=== PATIENT | female | born 1970 | race Caucasian/White ===

== ENCOUNTER → 2017-10-16 | Day surgery (SDC) | payer OTHER ==
[~2017-10-16] VITALS: Ht 165.1 cm; Wt 70.3 kg
[~2017-10-16] MED LIST: ALPRAZOLAM0.25 M1 PO; DEXILANT60 M1 PO; EPIPEN 2-P0.3 MG/0.3 IM; EPIPEN 2-PAK1 MG/ML IM; LATISSE5 ML TOP; MIRENA1 EACH; NAPROSYN375 MG PO; SYNTHROID25 MCG PO; XOPENEX HFA15 GM INH; ZYRTEC10 M6 PO; [UNRECOGNIZED DRUG - OTHER] PO
--- NOTE | 2017-10-16 13:54 | Operative Report ---
Operative/Inv Procedure Report Surgery Date: 10/16/17 Name of Procedure: right ureteroscopy, laser lithotripsy, stent placement Pre-Operative Diagnosis: right distal ureteral stone Post-Operative Diagnosis: same Estimated Blood Loss: scant Surgeon/Doctor Of Podiatry: Sandrita Roberto MD Anesthesia: laryngeal mask airway Drains: 6x24cm stent Specimens: stone fragments Complications: none Condition: stable Operative Indication: right flank, RLQ pain Operative/Procedure Note Note: Is an operative dictation on patient Zina Levy. 47-year-old female with a history of kidney stones she is pad as well back in May 2017. However she was unable to pass the stone was stuck in the ureter. Due to recent KUB that showed a distal UVJ stone approximately 7 mm size. She is continuing to have discomfort. She was treated with alpha blockers however this was not successful in passing the stone. She was given the risks benefits and alternatives of the surgery for ureteroscopy with laser lithotripsy. All questions were answered. Consent was signed. Patient was taken to the operating room placed on the operating table in supine position. Timeout was performed and LMA anesthesia was given. IV antibiotics were infused. She was placed in the dorsolithotomy position and prepped and draped in the standard sterile fashion. Cystoscopy was performed and the bladder was globally inspected. There were no abnormalities appreciated lesions were not seen. Ureteral orifices were in their normal anatomic location. The right ureteral orifice was attempted to be cannulated with a sensor guidewire. However the wire would not traverse the ureter. Semirigid ureteroscope was placed into the ureteral orifice and the distal stone was easily seen. It was a yellow brittle stone when lasered with the 275 laser. It was fragmented to smaller sizes. The stone fragments were removed with the 0 tip nitinol basket. The stone fragments were sent for stone analysis. A sensor guidewire was then placed through the ureteroscope. A 6 x 24 cm ureteral stent was placed over the wire was seen to be in good position fluoroscopically. The wire was removed and a KUB was taken. Patient tolerated the procedure well and she was transferred to recovery in stable condition. Findings: distal left UVJ stone Discharge Disposition: PACU
--- NOTE | 2017-10-18 15:40 | RADIOLOGY REPORT ---
EXAMINATION: INTRAOPERATIVE FLUOROSCOPIC GUIDANCE AND ABDOMEN CLINICAL INFORMATION: Right ureteroscopy with stent placement. COMPARISON: 10/08/2017. TECHNIQUE: Fluoroscopic time was utilized in the OR for Dr. Roberto. Fluoroscopic images were obtained in the AP projection. FINDINGS: Fluoroscopic guidance was provided during placement of a right ureteral stent. A right double-J ureteral stent is in place. FLUOROSCOPY TIME: 4 seconds of fluoroscopic time was utilized for the entirety of this examination. IMPRESSION: Fluoroscopic guidance was provided during placement of a right ureteral stent. A right double-J ureteral stent is in place.
== END ==
LOC: STS 03:48
DX: N20.1 Calculus of ureter (principal); Z87.442 Personal history of urinary calculi; E03.9 Hypothyroidism, unspecified; J45.909 Unspecified asthma, uncomplicated
CPT/HCPCS: 74018; C2617; J0690; J2250